=== PATIENT | female | born 2000 | race African-American/Black ===

== ENCOUNTER 2023-05-07 12:10 | Emergency (ER) | payer OTHER ==
[2023-05-07 12:19] VITALS: BP 139/71; PULSE 70; RESP 18; TEMP 98.9; BMI 42.3
[2023-05-07] MEDS ORDERED: ACETAMINOPHEN 325 MG TABLET (FP) ONE (15:35)
[2023-05-07] MEDS: ACETAMINOPHEN 325 MG TABLET (FP) PO ONE (15:37)
== END 2023-05-07 15:37 | disposition home or self-care (01) ==
LOC: FER 12:10
DX: R22.1 Localized swelling, mass and lump, neck (principal)
CPT/HCPCS: 76536-TC; 99284-25

== ENCOUNTER 2023-05-17 13:21 | Inpatient (IN) | payer OTHER ==
[2023-05-17] MEDS ORDERED: METOCLOPRAMIDE HCL INJECTION 10 MG/2 ML VIAL ONE (14:31)
[2023-05-17] MEDS: METOCLOPRAMIDE HCL INJECTION 10 MG/2 ML VIAL IVPB ONE (14:43)
[2023-05-17] MEDS: ACETAMINOPHEN 1000 MG/100 ML BAG IVPB ONE (14:43)
[2023-05-17] MEDS ORDERED: ACETAMINOPHEN INJECTION 100 ML IVPB ONE (14:45)
[2023-05-17 14:55] LABS: BASO % 0.7 % (0-2.0); EOS % 2.1 % (0-4.5); HEMATOCRIT 36.3 % (32.4-45.2); HEMOGLOBIN 11.9 GM/dL (10.7-15.3); LYMPH % 22.5 % (8-40); MCH 28.9 pg (25.7-33.7); MCHC 32.7 g/dl (32.0-36.0); MEAN CELL VOLUME 88.2 fl (80-96); MEAN PLT VOLUME 7.1 fl (7.5-11.1); NEUT % 67.7 % (42.8-82.8); PLATELET COUNT 438 10^3/uL (134-434); RBC 4.11 M/mm3 (3.60-5.2); RDW 14.2 % (11.6-15.6); WHITE BLOOD COUNT 11.8 K/mm3 (4.0-10.0)
[2023-05-17 15:28] LABS: CALCIUM 9.4 mg/dL (8.5-10.1)
[2023-05-17 15:29] LABS: ALBUMIN 3.5 g/dl (3.4-5.0); BLOOD UREA NITROGEN 9.9 mg/dL (7-18)
[2023-05-17 15:32] LABS: CREATININE 0.8 mg/dL (0.55-1.3)
[2023-05-17 15:33] LABS: BILIRUBIN,TOTAL 0.3 mg/dL (0.2-1)
[2023-05-17 15:34] LABS: TOT PROT 7.9 g/dl (6.4-8.2)
[2023-05-17] MEDS: VANCOMYCIN PREMIX 1.75 GM 1,750 MG/350 ML PIGGYBACK IVPB ONE (20:05)
[2023-05-18] MEDS: CLINDAMYCIN 600MG PREMIX IVPB 600 MG/50 ML BAG IVPB SCH (02:20)
[2023-05-18] MEDS ORDERED: CLINDAMYCIN 600MG PREMIX IVPB 600 MG/50 ML BAG IVPB ONE (03:20)
[2023-05-18] MEDS ORDERED: ACETAMINOPHEN 500 MG TABLET (FP) PO PRN (04:53)
[2023-05-18] MEDS: morphine CARPU-JECT 4 MG/1 ML DISP.SYRIN IVPUSH PRN (04:55)
[2023-05-18 07:23] LABS: HEMATOCRIT 36.4 % (32.4-45.2); MCH 28.8 pg (25.7-33.7); MEAN CELL VOLUME 87.2 fl (80-96); MEAN PLT VOLUME 7.5 fl (7.5-11.1); PLATELET COUNT 453 10^3/uL (134-434); RBC 4.17 M/mm3 (3.60-5.2); RDW 14.1 % (11.6-15.6); WHITE BLOOD COUNT 11.1 K/mm3 (4.0-10.0)
[2023-05-18 07:53] LABS: POTASSIUM 4.2 mmol/L (3.5-5.1)
[2023-05-18 07:56] LABS: CALCIUM 9.1 mg/dL (8.5-10.1)
[2023-05-18 07:57] LABS: ALBUMIN 3.2 g/dl (3.4-5.0); BLOOD UREA NITROGEN 9.9 mg/dL (7-18)
[2023-05-18 08:00] LABS: CREATININE 0.8 mg/dL (0.55-1.3)
[2023-05-18 08:01] LABS: BILIRUBIN,TOTAL 0.4 mg/dL (0.2-1); TOT PROT 7.6 g/dl (6.4-8.2)
[2023-05-18] MEDS ORDERED: CLINDAMYCIN HCL 150 MG CAPSULE (FP) ONE (11:08)
[2023-05-18] MEDS: CLINDAMYCIN HCL 300 MG CAPSULE PO SCH (11:18)
[2023-05-18] MEDS ORDERED: LIDOCAINE HCL 1%, 10 MG/ML (20ML VIAL) ONE (13:12)
[2023-05-18] MEDS ORDERED: BUPIVACAINE HCL/PF 0.5% (5MG/ML) 10 ML VIAL ONE (13:13)
[2023-05-18] MEDS ORDERED: ROCURONIUM BROMIDE 50 MG/5 ML SYRINGE ONE (13:28)
[2023-05-18] MEDS ORDERED: PROPOFOL 20 ML ONE ×2 (13:28→13:52)
[2023-05-18] MEDS ORDERED: SUCCINYLCHOLINE CHLORIDE 200 MG/10 ML SYRINGE ONE (13:28)
[2023-05-18] MEDS ORDERED: MIDAZOLAM HCL 2 MG/2 ML SINGLE DOSE VIAL ONE (13:28)
[2023-05-18] MEDS ORDERED: FENTANYL CITRATE/PF 50 MCG/ML VIAL ONE ×2 (13:28→14:43)
[2023-05-18] MEDS ORDERED: DEXAMETHASONE SOD PHOSPHATE 4 MG/1 ML VIAL ONE (13:55)
[2023-05-18] MEDS ORDERED: ONDANSETRON 4 MG/2 ML VIAL ONE (13:55)
[2023-05-18] MEDS: HYDROGEN PEROXIDE 473 ML PO ONE (14:09)
[2023-05-18] MEDS ORDERED: SUGAMMADEX SODIUM 200 MG/2 ML VIAL ONE ×2 (14:18→14:29)
[2023-05-18] MEDS ORDERED: ONDANSETRON 4 MG/2 ML VIAL IVPUSH PRN (14:41)
[2023-05-18] MEDS: PIPERACILLIN/TAZOB 3.375 GM 3.375 GM in DEXTROSE 5%-WATER - 50 ML IVPB SCH (15:00)
[2023-05-18 15:13] LABS: HIV INTERPRETATION NEGATIVE (NEGATIVE)
[2023-05-18] MEDS ORDERED: oxyCODONE HCL 5 MG TABLET PO PRN ×2 (15:49)
[2023-05-18] MEDS: LACTATED RINGERS SOLUTION 1,000 ML IV SCH (17:03)
[2023-05-18] MEDS: CLINDAMYCIN HCL 150 MG CAPSULE (FP) PO SCH (17:04)
[2023-05-18 18:45] VITALS: BMI 40.6
[2023-05-18] MEDS: ACETAMINOPHEN 500 MG TABLET (FP) PO SCH (19:29)
[2023-05-18] MEDS ORDERED: TRIMETHOBENZAMIDE HCL 200MG/2ML INJ IM PRN (19:48)
[2023-05-18] MEDS ORDERED: ALBUTEROL SO4 HFA INHALER IH PRN (19:48)
[2023-05-19 08:09] LABS: HEMATOCRIT 35.1 % (32.4-45.2); HEMOGLOBIN 11.9 GM/dL (10.7-15.3); MCH 29.7 pg (25.7-33.7); MCHC 33.9 g/dl (32.0-36.0); MEAN CELL VOLUME 87.7 fl (80-96); MEAN PLT VOLUME 7.3 fl (7.5-11.1); PLATELET COUNT 508 10^3/uL (134-434); RDW 14.1 % (11.6-15.6); WHITE BLOOD COUNT 10.8 K/mm3 (4.0-10.0)
[2023-05-19 08:10] LABS: POTASSIUM 4.4 mmol/L (3.5-5.1)
[2023-05-19 08:27] LABS: ALBUMIN 3.1 g/dl (3.4-5.0); BLOOD UREA NITROGEN 12.1 mg/dL (7-18); MAGNESIUM 2.6 mg/dL (1.8-2.4)
[2023-05-19 08:30] LABS: CREATININE 0.7 mg/dL (0.55-1.3); PHOSPHOROUS 4.7 mg/dL (2.5-4.9)
[2023-05-19 08:32] LABS: BILIRUBIN,TOTAL 0.4 mg/dL (0.2-1); TOT PROT 7.7 g/dl (6.4-8.2)
[2023-05-19] MEDS: POLYETHYLENE GLYCOL (HEALTHYLAX) 3350 17 GM PACKET PO SCH ×2 (11:45→22:49)
[2023-05-19] MEDS: ACETAMINOPHEN 500 MG TABLET (FP) PO SCH (17:55)
[2023-05-19] MEDS ORDERED: ACETAMINOPHEN 500 MG TABLET (FP) PO PRN (18:00)
[2023-05-20 09:51] LABS: HEMATOCRIT 35.4 % (32.4-45.2); HEMOGLOBIN 11.8 GM/dL (10.7-15.3); MCH 29.1 pg (25.7-33.7); MCHC 33.3 g/dl (32.0-36.0); MEAN CELL VOLUME 87.6 fl (80-96); MEAN PLT VOLUME 7.5 fl (7.5-11.1); PLATELET COUNT 464 10^3/uL (134-434); RBC 4.04 M/mm3 (3.60-5.2); RDW 14.2 % (11.6-15.6); WHITE BLOOD COUNT 6.6 K/mm3 (4.0-10.0)
[2023-05-20 13:21] VITALS: TEMP 98.2
[2023-05-20 15:22] VITALS: BP 144/76; PULSE 79; RESP 18
== END 2023-05-20 18:17 | disposition home or self-care (01) | DRG 364 ==
LOC: JERFT 13:21 → JERBED 21:01 → UNDOADMIN 21:01 → SUATTDRO 05-18 14:10 → JASUSAT 05-18 14:10 → J8W 05-18 16:31 → JASUSAT 05-18 16:32 → J8W 05-19 14:20
PROVIDERS: ADMIT Internal Medicine; ATTEND Internal Medicine
PROC: 0W960ZZ Drainage of Neck, Open Approach (ICD-10-PCS; principal; 2023-05-18 14:30)
DX: L02.11 Cutaneous abscess of neck (principal); Z68.41 Body mass index [BMI] 40.0-44.9, adult; E66.01 Morbid (severe) obesity due to excess calories; J45.909 Unspecified asthma, uncomplicated; K59.00 Constipation, unspecified; L73.2 Hidradenitis suppurativa
CPT/HCPCS: 36415; 70491-TC; 80053; 83036; 83735; 84100; 84703; 85025; 85027; 87040; 87070; 87186; 87205; 87389; 93005; 93010; 94760; 99285-25; J0131; J3370; Q9967

== ENCOUNTER 2023-09-20 18:33 | Inpatient (IN) | payer OTHER ==
[2023-09-20 19:00] VITALS: BMI 40.5
[2023-09-20] MEDS ORDERED: ACETAMINOPHEN 500 MG TABLET (FP) ONE (19:30)
[2023-09-20] MEDS: ACETAMINOPHEN 500 MG TABLET (FP) PO ONE (19:35)
[2023-09-20] MEDS ORDERED: LIDOCAINE HCL 1%, 10 MG/ML (20ML VIAL) ONE (20:21)
[2023-09-20] MEDS: LIDOCAINE HCL 1%, 10 MG/ML (50 mL VIAL) SQ ONE (20:22)
[2023-09-20] MEDS ORDERED: morphine SULFATE 4 MG/ML VIAL ONE ×2 (22:14→23:50)
[2023-09-20] MEDS ORDERED: SULFAMETHOXAZOLE/TRIMETHOPRIM 800MG/160MG D.S. TABLET ONE (22:15)
[2023-09-20 22:16] LABS: BASO % 0.7 % (0-2.0); EOS % 1.1 % (0-4.5); HEMATOCRIT 37.1 % (32.4-45.2); HEMOGLOBIN 12.4 GM/dL (10.7-15.3); LYMPH % 18.2 % (8-40); MCH 28.8 pg (25.7-33.7); MCHC 33.5 g/dl (32.0-36.0); MEAN CELL VOLUME 86.1 fl (80-96); MEAN PLT VOLUME 7.4 fl (7.5-11.1); MONO % 7.5 % (3.8-10.2); NEUT % 72.5 % (42.8-82.8); PLATELET COUNT 350 10^3/uL (134-434); RBC 4.31 M/mm3 (3.60-5.2); RDW 15.6 % (11.6-15.6); WHITE BLOOD COUNT 12.7 K/mm3 (4.0-10.0)
[2023-09-20] MEDS: morphine CARPU-JECT 4 MG/1 ML DISP.SYRIN IVPUSH ONE ×2 (22:20→23:56)
[2023-09-20] MEDS: SULFAMETHOXAZOLE/TRIMETHOPRIM 800MG/160MG D.S. TABLET PO ONE (22:20)
[2023-09-20 22:48] LABS: POTASSIUM 4.2 mmol/L (3.5-5.1)
[2023-09-20 22:49] LABS: BLOOD UREA NITROGEN 9.6 mg/dL (7-18); CALCIUM 9.2 mg/dL (8.5-10.1)
[2023-09-20 22:53] LABS: CREATININE 0.8 mg/dL (0.55-1.3)
[2023-09-21] MEDS: ACETAMINOPHEN 1000 MG/100 ML BAG IVPB PRN (03:23)
[2023-09-21] MEDS: PIPERACILLIN/TAZOB 3.375 GM 3.375 GM in DEXTROSE 5%-WATER - 50 ML IVPB SCH ×2 (03:40→18:34)
[2023-09-21] MEDS: morphine SULFATE 4 MG/ML VIAL IM PRN (05:37)
[2023-09-21] MEDS ORDERED: ENOXAPARIN NA (PORCINE) 40 MG/0.4 ML DISP.SYRIN SQ SCH (10:00)
[2023-09-21 11:01] LABS: BASO % 0.1 % (0-2.0); EOS % 1.2 % (0-4.5); HEMATOCRIT 37.5 % (32.4-45.2); HEMOGLOBIN 12.4 GM/dL (10.7-15.3); MCH 28.3 pg (25.7-33.7); MCHC 33.1 g/dl (32.0-36.0); MEAN CELL VOLUME 85.5 fl (80-96); MEAN PLT VOLUME 7.9 fl (7.5-11.1); MONO % 7.5 % (3.8-10.2); NEUT % 77.2 % (42.8-82.8); PLATELET COUNT 358 10^3/uL (134-434); RBC 4.38 M/mm3 (3.60-5.2); RDW 15.4 % (11.6-15.6); WHITE BLOOD COUNT 10.4 K/mm3 (4.0-10.0)
[2023-09-21 11:20] LABS: POTASSIUM 4.1 mmol/L (3.5-5.1)
[2023-09-21 11:27] LABS: ALBUMIN 3.4 g/dl (3.4-5.0); BLOOD UREA NITROGEN 8.7 mg/dL (7-18); CALCIUM 8.8 mg/dL (8.5-10.1); MAGNESIUM 2.1 mg/dL (1.8-2.4)
[2023-09-21 11:29] LABS: BILIRUBIN,TOTAL 0.7 mg/dL (0.2-1)
[2023-09-21 11:30] LABS: CREATININE 0.8 mg/dL (0.55-1.3); TOT PROT 7.3 g/dl (6.4-8.2)
[2023-09-21 11:31] LABS: PHOSPHOROUS 3.8 mg/dL (2.5-4.9)
[2023-09-21 13:35] LABS: PH,URINE 6.5 (5.0-8.0); URINE APPEARANCE CLEAR; URINE BILIRUBIN NEGATIVE (NEGATIVE); URINE COLOR YELLOW; URINE GLUCOSE (UA) NEGATIVE (NEGATIVE); URINE KETONE NEGATIVE (NEGATIVE); URINE LEUK ESTERASE NEGATIVE (NEGATIVE); URINE NITRITE NEGATIVE (NEGATIVE); URINE PROTEIN NEGATIVE (NEGATIVE); URINE UROBILINOGEN 0.2 mg/dL (0.2-1.0)
[2023-09-21] MEDS: AMPICILLIN NA/SULBACTAM NA 1.5 GM in SODIUM CHLORIDE 100 ML IVPB SCH (18:48)
[2023-09-21] MEDS: DOXYCYCLINE INJECTION 100 MG in DEXTROSE 5%-WATER 100 ML IVPB SCH (22:16)
[2023-09-22 09:54] LABS: BASO % 0.2 % (0-2.0); EOS % 1.3 % (0-4.5); HEMATOCRIT 37.5 % (32.4-45.2); HEMOGLOBIN 12.5 GM/dL (10.7-15.3); LYMPH % 15.3 % (8-40); MCH 28.5 pg (25.7-33.7); MCHC 33.4 g/dl (32.0-36.0); MEAN CELL VOLUME 85.3 fl (80-96); MEAN PLT VOLUME 7.8 fl (7.5-11.1); MONO % 7.9 % (3.8-10.2); NEUT % 75.3 % (42.8-82.8); PLATELET COUNT 365 10^3/uL (134-434); RBC 4.39 M/mm3 (3.60-5.2); RDW 15.4 % (11.6-15.6); WHITE BLOOD COUNT 11.5 K/mm3 (4.0-10.0)
[2023-09-22 09:56] LABS: INR 1.25 (0.83-1.09); PROTHROMBIN TIME (PATIENT) 14.3 SEC (9.7-13.0)
[2023-09-22 10:18] LABS: BLOOD UREA NITROGEN 7.4 mg/dL (7-18); CALCIUM 9.3 mg/dL (8.5-10.1)
[2023-09-22 10:21] LABS: CREATININE 0.7 mg/dL (0.55-1.3)
[2023-09-22] MEDS: KETOROLAC TROMETHAMINE 15 MG/ML VIAL IVPUSH ONE (19:58)
[2023-09-23] MEDS ORDERED: oxyCODONE HCL 5 MG TABLET PO PRN (12:36)
[2023-09-23] MEDS ORDERED: ACETAMINOPHEN 325 MG TABLET (FP) PO PRN ×2 (12:36→14:43)
[2023-09-23] MEDS ORDERED: ONDANSETRON 4 MG/2 ML VIAL IVPUSH PRN ×2 (12:36→14:43)
[2023-09-23] MEDS ORDERED: PROPOFOL 20 ML ONE (12:38)
[2023-09-23] MEDS ORDERED: MIDAZOLAM HCL 2 MG/2 ML SINGLE DOSE VIAL ONE (12:39)
[2023-09-23] MEDS ORDERED: SUCCINYLCHOLINE CHLORIDE 200 MG/10 ML SYRINGE ONE (12:58)
[2023-09-23] MEDS ORDERED: ROCURONIUM BROMIDE 50 MG/5 ML SYRINGE ONE (13:10)
[2023-09-23] MEDS ORDERED: ONDANSETRON 4 MG/2 ML VIAL ONE ×2 (13:21→13:22)
[2023-09-23] MEDS ORDERED: DEXAMETHASONE SOD PHOSPHATE 4 MG/1 ML VIAL ONE ×2 (13:21)
[2023-09-23] MEDS ORDERED: SUGAMMADEX SODIUM 200 MG/2 ML VIAL ONE (13:25)
[2023-09-23] MEDS: LACTATED RINGERS SOLUTION 1,000 ML IV SCH ×2 (14:12→15:16)
[2023-09-23] MEDS: AMPICILLIN NA/SULBACTAM NA 1.5 GM in SODIUM CHLORIDE 100 ML IVPB SCH (15:17)
[2023-09-23] MEDS: DOXYCYCLINE INJECTION 100 MG in DEXTROSE 5%-WATER 100 ML IVPB SCH (23:14)
[2023-09-24] MEDS: oxyCODONE HCL 5 MG TABLET PO PRN (06:30)
[2023-09-24 08:01] LABS: HEMATOCRIT 35.4 % (32.4-45.2); HEMOGLOBIN 11.7 GM/dL (10.7-15.3); MCH 28.5 pg (25.7-33.7); MEAN CELL VOLUME 86.2 fl (80-96); MEAN PLT VOLUME 7.7 fl (7.5-11.1); PLATELET COUNT 399 10^3/uL (134-434); WHITE BLOOD COUNT 10.2 K/mm3 (4.0-10.0)
[2023-09-24 08:21] LABS: BLOOD UREA NITROGEN 9.1 mg/dL (7-18); CALCIUM 9.1 mg/dL (8.5-10.1); MAGNESIUM 2.4 mg/dL (1.8-2.4)
[2023-09-24 08:24] LABS: CREATININE 0.7 mg/dL (0.55-1.3)
[2023-09-24 08:25] LABS: PHOSPHOROUS 3.2 mg/dL (2.5-4.9)
[2023-09-24 08:26] LABS: BILIRUBIN,TOTAL 0.4 mg/dL (0.2-1); TOT PROT 7.4 g/dl (6.4-8.2)
[2023-09-25 09:19] LABS: BASO % 0.7 % (0-2.0); EOS % 4.1 % (0-4.5); HEMATOCRIT 35.9 % (32.4-45.2); LYMPH % 43.1 % (8-40); MCH 28.8 pg (25.7-33.7); MCHC 33.4 g/dl (32.0-36.0); MEAN CELL VOLUME 86.4 fl (80-96); MEAN PLT VOLUME 7.4 fl (7.5-11.1); MONO % 7.2 % (3.8-10.2); NEUT % 44.9 % (42.8-82.8); PLATELET COUNT 408 10^3/uL (134-434); RBC 4.16 M/mm3 (3.60-5.2); RDW 14.8 % (11.6-15.6); WHITE BLOOD COUNT 6.6 K/mm3 (4.0-10.0)
[2023-09-25 09:38] LABS: POTASSIUM 4.3 mmol/L (3.5-5.1)
[2023-09-25 09:39] LABS: CALCIUM 8.8 mg/dL (8.5-10.1)
[2023-09-25 09:40] LABS: BLOOD UREA NITROGEN 11.2 mg/dL (7-18)
[2023-09-25 09:43] LABS: CREATININE 0.8 mg/dL (0.55-1.3)
[2023-09-25 14:48] VITALS: BP 129/55; PULSE 66; RESP 20; TEMP 98.2
== END 2023-09-25 15:19 | disposition home health service (06) | DRG 383 ==
LOC: JER 18:33 → JERBED 22:32 → J5S 09-21 01:33 → J8W 09-22 05:23
PROVIDERS: ADMIT Internal Medicine; ATTEND Internal Medicine
PROC: 0W960ZX Drainage of Neck, Open Approach, Diagnostic (ICD-10-PCS; principal; 2023-09-23 13:15)
DX: L02.11 Cutaneous abscess of neck (principal); Z68.41 Body mass index [BMI] 40.0-44.9, adult; E66.01 Morbid (severe) obesity due to excess calories; F12.90 Cannabis use, unspecified, uncomplicated; M54.2 Cervicalgia; J45.909 Unspecified asthma, uncomplicated
CPT/HCPCS: 36415; 76536-TC; 76604; 80048; 80053; 81003; 83735; 84100; 84703; 85025; 85027; 85610; 87070; 87076; 87186; 87205; 93005; 93010; 94760; 99285-25; J0131